=== PATIENT | female | born 1970 | race Caucasian/White ===

== ENCOUNTER 2022-12-15 08:54 | Outpatient (CLI) | payer OTHER, SELFPAY ==
--- NOTE | 2022-12-15 09:00 | MM_ITS ---
WS: [id number] SCREENING DIGITAL BREAST TOMOSYNTHESIS MAMMOGRAM WITH CAD HISTORY: SCREENING COMPARISON: 01/13/2021, 11/18/2020, 11/10/2020 and 12/23/2018 Bilateral CC and MLO with tomosynthesis and synthetic mammography submitted. Computer aided detection analyzed. Breast composition: The breasts are heterogeneously dense, which may obscure small masses. There is a biopsy clip in the upper outer quadrant of the LEFT breast towards the axillary tail. There is an ov oid 14 x 5 mm mass in the upper outer quadrant which is adjacent but separate from the biopsy clip. T his may have been the area of biopsy on the prior study. This nodule appears new as compared to the m ost recent studies. RIGHT breast is negative. IMPRESSION: MM/[place] [id number] BI-RADS: 0-Incomplete: Need additional imaging evaluation FOLLOW UP: Need Additional Imaging LEFT breast: Spot compression views (CC and MLO). True ML. Ultrasound to follow if abnormality persists.
== END 2022-12-15 08:55 | disposition home or self-care (01) ==
LOC: MOBLMAM 09:04
PROVIDERS: Visit Provider Obstetrics & Gynecology
DX: Z12.31 Encounter for screening mammogram for malignant neoplasm of breast (principal)
CPT/HCPCS: 77063; 77067